=== PATIENT | female | born 1975 | race Caucasian/White ===

== ENCOUNTER → 2018-06-07 | Outpatient (CLI) | payer OTHER ==
--- NOTE | 2018-06-07 16:01 | RAD ---
Pelvic ultrasound, transabdominal 06/07/2018 INDICATION: Pelvic pain COMPARISON STUDY: None Discussion: Ultrasound of the pelvis is performed transabdominally. Static images are submitted to PACS. Uterus measures 11.4 x 3.5 x 5.7 cm. No focal uterine lesions are identified. Endometrial thickness is approximately 10 cm. Correlate with phase of the menstrual cycle. The right ovary measures 2.1 x 1.5 x 2.4 cm and is unremarkable in appearance. Left ovary measures 3.0 x 1.6 x 2.7 cm containing a relatively simple 1.8 cm and dominant follicle versus cyst. No significant free fluid is seen in the pelvis. Transvaginal imaging was not performed. IMPRESSION: Unremarkable sonographic appearance of the pelvis. Electronically signed by: Gerard Dimas MD (06/07/2018 3:58 PM) [id number]
== END | disposition home or self-care (01) ==
LOC: US 13:20
PROVIDERS: ATTEND Family Medicine
DX: R10.2 Pelvic and perineal pain (principal)
CPT/HCPCS: 76856

== ENCOUNTER 2018-09-15 06:01 | Observation (INO) | payer OTHER ==
[~2018-09-15] VITALS: Ht 160 cm; Wt 59.0 kg
[~2018-09-15 06:01] MED LIST: ALPR0.5T6 PO; AMOX500C PO; MULT1TAB52 PO
[2018-09-15] MEDS: IV RINGERS,LACTATED 1000ML 1,000 ML IV SCH ×3 (06:48→10:53)
[2018-09-15] MEDS ORDERED: ONDANSETRON PF 4 MG/2 ML VIAL. ONE (06:52)
[2018-09-15] MEDS ORDERED: DEXAMETHASONE SOD PHOS 20 MG/5 ML VIAL. ONE (06:52)
[2018-09-15] MEDS ORDERED: ROCURONIUM 50 MG/5 ML VIAL. ONE (06:52)
[2018-09-15] MEDS ORDERED: PROPOFOL 20 ML IV ONE (06:52)
[2018-09-15] MEDS ORDERED: LIDOCAINE 2% PF Vial for OR 5 ML VIAL. ONE (06:52)
[2018-09-15] MEDS ORDERED: LIDOCAINE 1% PF 2 ML VIAL. ID PRN (07:00)
[2018-09-15] MEDS ORDERED: fentaNYL PF VIAL 100 MCG/2 ML VIAL IV PRN (07:00)
[2018-09-15] MEDS ORDERED: HYDROmorphone 2 MG/ML VIAL IV PRN ×2 (07:00→09:45)
[2018-09-15] MEDS ORDERED: ONDANSETRON PF 4 MG/2 ML VIAL. IV PRN ×2 (07:00→09:45)
[2018-09-15] MEDS ORDERED: ESTROGENS, CONJ VAGINAL CREAM 30GM TUBE. ONE (07:16)
[2018-09-15] MEDS ORDERED: ISOSULFAN BLUE 50 MG/5 ML VIAL. SQ ONE (07:16)
[2018-09-15] MEDS ORDERED: METHYLENE BLUE 1% 10 ML VIAL. ONE (07:16)
[2018-09-15] MEDS ORDERED: BUPIVAC MPF-EPI 0.5%-1:200000 30 ML VIAL. ONE (07:16)
[2018-09-15] MEDS ORDERED: fentaNYL PF VIAL 100 MCG/2 ML VIAL ONE ×3 (07:24→09:59)
[2018-09-15] MEDS ORDERED: MIDAZOLAM HCL/PF 2 MG/2 ML VIAL. ONE (07:25)
[2018-09-15] MEDS ORDERED: metroNIDAZOLE 0.75% VAGINAL 1 APP TUBE VG ONE (07:30)
[2018-09-15 07:58] LABS: U PREG PATIENT NEGATIVE (NEG)
[2018-09-15 08:01] LABS: BASO % 1 % (0-3); EOS # 0.1 x10^3/uL (0.0-0.7); EOS % 2 % (0-3); HEMATOCRIT 40.7 % (36.0-47.0); HEMOGLOBIN 13.8 g/dL (12.0-15.5); LYMPH # 2.4 x10^3/uL (1.0-4.8); LYMPH % 30 % (24-48); MEAN CORPUSCULAR HEMOGLOBIN 32 pg (25-35); MEAN CORPUSCULAR HGB CONC 34 g/dL (31-37); MEAN CORPUSCULAR VOLUME 94 fL (79-100); MONO # 0.7 x10^3/uL (0.0-1.1); MONO % 8 % (0-9); NEUT # 4.8 x10^3uL (1.8-7.7); NEUT % 60 % (31-73); PLATELET COUNT 287 x10^3/uL (140-400); RED BLOOD COUNT 4.35 x10^6/uL (3.50-5.40); RED CELL DISTRIBUTION WIDTH 13.5 % (11.5-14.5); WHITE BLOOD COUNT 8.1 x10^3/uL (4.0-11.0)
[2018-09-15] MEDS ORDERED: SEVOFLURANE > 120 MINUTES. IH ONE (08:16)
[2018-09-15] MEDS ORDERED: GLYCOPYRROLATE 1 MG/5 ML VIAL. ONE (08:38)
[2018-09-15] MEDS ORDERED: diphenhydrAMINE 50 MG/ML VIAL ONE (08:46)
[2018-09-15] MEDS ORDERED: NEOSTIGMINE 10 MG/10 ML VIAL. ONE (08:50)
[2018-09-15] MEDS ORDERED: SEVOFLURANE 61 TO 120 MINUTES. IH ONE (09:38)
[2018-09-15] MEDS ORDERED: diphenhydrAMINE 50 MG/ML VIAL IV PRN (09:45)
[2018-09-15] MEDS ORDERED: DEXTROSE 50% 25 GM / 50ML DISP.SYRIN. IV PRN (09:45)
[2018-09-15] MEDS ORDERED: MAG HYDROX/ALUMINUM HYD/SIMETH 30 ML ORAL.SUSP PO PRN (09:45)
[2018-09-15] MEDS ORDERED: ZOLPIDEM 5 MG TABLET. PO PRN (09:45)
[2018-09-15] MEDS ORDERED: oxyCODONE/APAP 5/325 1 TAB TABLET PO PRN (09:45)
[2018-09-15] MEDS ORDERED: 0.9 % SODIUM CHLORIDE 10 ML DISP.SYRIN. IV PRN (09:45)
[2018-09-15] MEDS ORDERED: HYDROmorphone 12mg/30ml PCA 30 ML IV PRN (09:45)
[2018-09-15] MEDS ORDERED: NALOXONE 0.4 MG/ML VIAL. IV PRN (09:45)
[2018-09-15] MEDS ORDERED: SIMETHICONE 80 MG TAB.CHEW PO PRN (09:45)
[2018-09-15] MEDS ORDERED: diphenhydrAMINE HCL 25 MG CAPSULE PO PRN (09:45)
[2018-09-15] MEDS ORDERED: CALCIUM CARBONATE 500 MG TAB.CHEW PO PRN (09:45)
--- NOTE | 2018-09-15 09:46 | PDOC ---
BRIEF OPERATIVE NOTE Pre-Op Diagnosis AUB Endometriosis CPP leiomyomata Post-Op Diagnosis Same Procedure Performed LAVK BSO Surgeon Chaparrita Anesthesia Type: General Blood Loss 100cc Urine Output 500cc Specimens Obtained UYO Complications None WEST BEAULIEU MD Sep 15, 2018 09:46
[2018-09-15] MEDS ORDERED: MORPHINE SULFATE 4 MG/ML VIAL. ONE (09:59)
[2018-09-15] MEDS ORDERED: PROCHLORPERAZINE 10 MG/2 ML VIAL. ONE (09:59)
[2018-09-15] MEDS: PROCHLORPERAZINE 10 MG/2 ML VIAL. IV PRN ×2 (10:10→10:26)
[2018-09-15] MEDS: fentaNYL PF VIAL 100 MCG/2 ML VIAL IV PRN ×2 (10:11→10:17)
[2018-09-15] MEDS ORDERED: KETOROLAC 30 MG/ML VIAL. ONE (10:12)
[2018-09-15] MEDS: MORPHINE SULFATE 4 MG/ML VIAL. IV PRN ×4 (10:13→11:19)
[2018-09-15] MEDS ORDERED: KETOROLAC 30 MG/ML VIAL. IV ONE (10:15)
--- NOTE | 2018-09-15 10:59 | OP ---
DATE OF SURGERY: 09/15/2018 PREOPERATIVE DIAGNOSES: Abnormal uterine bleeding, chronic pelvic pain, symptomatically leiomyomata endometriosis. POSTOPERATIVE DIAGNOSES: Abnormal uterine bleeding, chronic pelvic pain, symptomatically leiomyomata endometriosis. PROCEDURE: Laparoscopic vaginal hysterectomy with bilateral salpingo-oophorectomy. SURGEON: West Cheatham M.D. SURVEY METHODOLOGIST: None. ANESTHESIA: General. ESTIMATED BLOOD LOSS: 100 mL. FLUIDS: Crystalloid. URINE OUTPUT: 500 mL. SPECIMENS: Uterus, tubes and ovaries. COMPLICATIONS: None. CONDITION: Stable. DESCRIPTION OF PROCEDURE: Risks, benefits, indications, alternatives and expectations were discussed in detail with the patient. The patient was brought to OR theater, placed in the dorsal lithotomy position in [facility]. After adequate general anesthesia, the patient was prepped and draped in usual sterile manner, and Johns was placed by myself. Clear urine was noted. Uterine manipulator was placed transvaginally without any difficulties. Attention was then turned to the anterior abdominal wall. A small vertical infraumbilical incision was made sharply with a scalpel. Through this Visiport, 5 mm disposable trocar was placed without any difficulty. Two lateral trocars were also placed under direct visualization after infiltrating the areas with 0.5% Marcaine with epinephrine. The patient was placed in Trendelenburg. First, the left IPL was taken down with EnSeal cautery device. This was taken down through the broad ligaments, round ligaments, cardinal ligament to the uterosacral ligament and a bladder flap was created with the same device. Same procedure was carried out on the opposite side. Good hemostasis was assured at all time. Bladder flap was created and developed as much as possible. Attention was then turned to the vaginal part of the procedure. All laparoscopic instruments were removed. Ports were left inside. The patient was placed in Trendelenburg. Uterine manipulator was removed. Cervix was grasped with single tooth tenaculum. Cervix circumcised with the scalpel. Posterior cul-de-sac was entered sharply with Albright scissors. The fluid that was left in the pelvis was noted to be returning. Large weighted speculum was placed in the space carefully. The pubovesical cervical fascia was from the underlying uterus secondary to the patient's previous . This was a tedious process. Entrance was gained into the anterior cul-de-sac and a curved [place] was used to displace the bladder. The remaining pedicles were clamped, cut and tied bilaterally, and the uterus was relieved with these attachments and handed off the operative field. Both tubes and ovaries were intact to the uterus. All pedicles were inspected. Posterior cul-de-sac was irrigated copiously with warm normal saline. A long weighted speculum was removed, replaced with a short weighted speculum. The vaginal cuff was reapproximated with 2-0 Vicryl in a horizontal mattress stitch fashion. Vaginal vault was irrigated copiously with warm normal saline and MetroGel vaginal packing was placed in the usual manner. Attention was then turned back to the laparoscopic part of the procedure. After changing gloves, the patient was placed in Trendelenburg. All pedicles were inspected and noted to be hemostatic. Ureters bilaterally were inspected and noted to be peristalsing and free of the operative field. Approximately 100 mL of saline was left in the pelvis for additional adhesion formation prevention. Procedure was terminated. All laparoscopic instrumentations were removed. Pneumoperitoneum was allowed to dissipate. Trocar sleeves were removed. The incisions were reapproximated, infiltrated with 0.5% Marcaine with epinephrine. Sponge, needle and instrument counts were correct x 2 per nursing staff. WEST CHEATHAM MD DR: TASH/jose g JOB#: [id number] / [id number]
[2018-09-15 11:30] VITALS: BP 102/71
[2018-09-15 12:10] VITALS: BP 105/71
[2018-09-15 13:07] VITALS: BP 108/69
[2018-09-15] MEDS: ceFAZolin SODIUM 1 GM in IV DEXTROSE 5% 50 ML IV SCH ×2 (15:33→20:54)
[2018-09-15] MEDS: oxyCODONE/APAP 5/325 1 TAB TABLET PO PRN ×2 (19:34→20:05)
[2018-09-15] MEDS ORDERED: DOCUSATE SODIUM 100 MG CAPSULE. PO SCH (21:00)
[2018-09-15] MEDS ORDERED: SENNOSIDES/DOCUSATE 8.6/50MG TABLET. PO SCH (21:00)
[2018-09-15 22:58] VITALS: BP 113/72
[2018-09-16] MEDS: ceFAZolin SODIUM 1 GM in IV DEXTROSE 5% 50 ML IV SCH (03:10)
[2018-09-16] MEDS: oxyCODONE/APAP 5/325 1 TAB TABLET PO PRN ×2 (03:12→09:03)
[2018-09-16 06:28] VITALS: BP 91/62
[2018-09-16 07:28] LABS: CALCIUM 9.3 mg/dL (8.5-10.1); CREATININE 0.8 mg/dL (0.6-1.0); GFR 77.9
--- NOTE | 2018-09-16 09:57 | PDOC ---
SURGICAL PROGRESS NOTE Subjective PT. feeling well. Vital Signs Vital Signs Date Time Temp Pulse Resp B/P (MAP) Pulse Ox O2 Delivery O2 Flow Rate FiO2 09/16/18 06:28 97.9 67 14 91/62 (72) 95 97.9 09/15/18 22:58 Room Air 09/15/18 10:35 10 I&O Intake and Output 09/16/18 06:59 Intake Total 2400 ml Output Total 1000 ml Balance 1400 ml Intake Oral 400 ml IV Total 2000 ml Output Urine Total 900 ml Estimated Blood Loss 100 ml # Voids 1 PATIENT HAS A HAUSER: No General: Alert, Oriented X3, Cooperative HEENT: Atraumatic Lungs: Clear to auscultation Heart: Regular rate Abdomen: Normal bowel sounds, Soft, No tenderness, No masses Psych/Mental Status: Mental status NL Labs Laboratory Tests Test 09/15/18 06:10 09/15/18 06:45 09/16/18 06:10 Urine Test Negative (NEG) White Blood Count 8.1 x10^3/uL (4.0-11.0) Red Blood Count 4.35 x10^6/uL (3.50-5.40) Hemoglobin 13.8 g/dL (12.0-15.5) Hematocrit 40.7 % (36.0-47.0) 35.2 % (36.0-47.0) Mean Corpuscular Volume 94 fL (79-100) Mean Corpuscular Hemoglobin 32 pg (25-35) Mean Corpuscular Hemoglobin Concent 34 g/dL (31-37) Red Cell Distribution Width 13.5 % (11.5-14.5) Platelet Count 287 x10^3/uL (140-400) Neutrophils (%) (Auto) 60 % (31-73) Lymphocytes (%) (Auto) 30 % (24-48) Monocytes (%) (Auto) 8 % (0-9) Eosinophils (%) (Auto) 2 % (0-3) Basophils (%) (Auto) 1 % (0-3) Neutrophils # (Auto) 4.8 x10^3uL (1.8-7.7) Lymphocytes # (Auto) 2.4 x10^3/uL (1.0-4.8) Monocytes # (Auto) 0.7 x10^3/uL (0.0-1.1) Eosinophils # (Auto) 0.1 x10^3/uL (0.0-0.7) Basophils # (Auto) 0.0 x10^3/uL (0.0-0.2) Sodium Level 141 mmol/L (136-145) Potassium Level 4.0 mmol/L (3.5-5.1) Chloride Level 105 mmol/L (98-107) Carbon Dioxide Level 28 mmol/L (21-32) Anion Gap 8 (6-14) Blood Urea Nitrogen 7 mg/dL (7-20) Creatinine 0.8 mg/dL (0.6-1.0) Estimated GFR (Cockcroft-Gault) 77.9 Glucose Level 96 mg/dL (70-99) Calcium Level 9.3 mg/dL (8.5-10.1) Laboratory Tests Test 09/16/18 06:10 Hematocrit 35.2 % (36.0-47.0) Sodium Level 141 mmol/L (136-145) Potassium Level 4.0 mmol/L (3.5-5.1) Chloride Level 105 mmol/L (98-107) Carbon Dioxide Level 28 mmol/L (21-32) Anion Gap 8 (6-14) Blood Urea Nitrogen 7 mg/dL (7-20) Creatinine 0.8 mg/dL (0.6-1.0) Estimated GFR (Cockcroft-Gault) 77.9 Glucose Level 96 mg/dL (70-99) Calcium Level 9.3 mg/dL (8.5-10.1) Assessment/Plan POD#1 s/p LAVMissy & BSO P: D/c home. RADHAMES PANIAGUA Jr, MD Sep 16, 2018 09:57
--- NOTE | 2018-09-16 09:59 | DISCH ---
DISCHARGE INSTRUCTIONS Condition on Discharge Condition on Discharge: Stable Activity After Discharge Activity Instructions for Disc: Activity as tolerated Lifting Instructions after Dis: No heavy lifting Driving Instructions after Dis: No driving for 2 weeks Diet after Discharge Diet after Discharge: Regular Contacting the DRWang after DC Call your doctor for: Concerns you may have Follow-Up Follow up with: Dr. Cheatham in 2 weeks. RADHAMES PANIAGUA Jr, MD Sep 16, 2018 09:59
[2018-09-16] MEDS ORDERED: NAPR-683 PO (10:03)
[2018-09-16] MEDS ORDERED: DOCU-109 PO (10:03)
[2018-09-16] MEDS ORDERED: OXYC1TAB15 PO (10:03)
[2018-09-16 11:00] VITALS: BP 91/62
--- NOTE | 2018-09-17 18:06 | PATHOLOGY ---
[facility] Accession Number: [id number] . 01 Material submitted: . UTERUS, CERVIX, BILATERAL TUBES AND OVARIES . 01 Clinical history: . Abnormal uterine bleeding, endometriosis, polyp . 02 Diagnosis: Uterus and attached bilateral fallopian tubes and ovaries, laparoscopic assisted vaginal hysterectomy with bilateral salpingo-oophorectomy: - Adenomyosis, uterine corpus. - Chronic cervicitis with focal squamous metaplasia. - Proliferative endometrium. - Left paratubal cyst. - Small right paratubal cyst. - Cystic follicles and hemorrhagic regressing luteinized cyst of left ovary. - Cystic follicles and focal capsular adhesions of right ovary. (JPM:helga; 09/17/2018) QMS/09/17/2018 . 02 Comment: There is no atypia or evidence of malignancy. . 02 Electronically signed: . Daren No MD, Pathologist NPI- [id number] . 01 Gross description: . The specimen is received in formalin, labeled "Mell Davis, uterus, cervix, bilateral tubes and ovaries". Received is a 78 g, 8.9 x 5.2 x 4.2 cm uterus with attached cervix and attached adnexa, weighing 9and 8 g, left and right, respectively. The uterine serosa is light hancock and disrupted in appearance with overlying adhesions present at the fundal aspect. The 1.1 cm cervical os is surrounded by pale hancock to mathur-hancock, scarred disrupted ectocervical mucosa. The uterus is oriented using the peritoneal reflection and the anterior paracervical margin is inked black. The uterus is opened laterally to reveal a pale hancock endocervical canal measuring 2.6 cm in length. The endometrial cavity is triangular measuring 4.1 cm in length by 2.7 cm in width. The endometrium is pink-hancock, glistening in appearance and measures 0.1 cm in thickness. Serial sectioning reveals a hancock-pink, trabeculated myometrium measuring up to 2.0 cm in thickness with no grossly distinct nodules or lesions. . The left adnexa consists of a fimbriated fallopian tube measuring 2.2 cm in length by 0.5 cm in diameter attached to a 3.0 x 2.2 x 2.0 cm ovary. The fallopian tube displays an attached paratubal cyst measuring 1.2 cm filled with clear serous fluid. Sectioning reveals a pinpoint to patent lumen. The ovarian surface is pale hancock to mathur-hancock and smooth in appearance. Sectioning reveals a unilocular cystic structure measuring 1.8 cm filled with yellow serous fluid. There are several corpora lutea present ranging in size from 0.4 to 1.1 cm, the largest of which appears hemorrhagic. The remaining cut surfaces display pale hancock, normal ovarian stroma. . The right adnexa consists of a previously ligated fimbriated fallopian tube measuring 3.1 cm in length by 0.6 cm in diameter attached to a 2.6 x 1.7 x 1.5 cm ovary. Sectioning through the fallopian tube reveals a patent lumen. The ovarian surface is yellow-hancock to mathur-hancock in appearance with a slight amount of overlying adhesions. Sectioning reveals two unilocular cystic structures measuring 0.5 and 0.8 cm filled with blood-tinged fluid. The remaining cut surfaces display pale hancock, normal ovarian stroma. The specimen is submitted representatively as follows: . A1 12:00 cervix A2 6:00 cervix A3 serosal adhesions A4 anterior endomyometrium A5 posterior endomyometrium A6-A7 left adnexa A8-A9 right adnexa. (CAA; 09/16/2018) QAC/QAC . 02 Pathologist provided ICD-10: N80.0, N72, N83.8 . 02 CPT . 227032 Specimen Comment: A courtesy copy of this report has been sent to Specimen Comment: [phone], . Specimen Comment: Report sent to / DR NUNEZ Specimen Comment: A duplicate report has been generated due to demographic updates. Performed at: [address], [place], [place] [id number] MD Christopher Mooney MD Phone: [phone] Performed at: 02 [facility] [address] [place] [id number] MD Daren No MD Phone: [phone]
== END 2018-09-16 12:49 | disposition home or self-care (01) ==
LOC: SURG 06:01 → MERGE 07:30 → 3 NORTH 10:19
PROVIDERS: ADMIT Specialist; ATTEND Specialist
DX: N93.9 Abnormal uterine and vaginal bleeding, unspecified (principal); N80.9 Endometriosis, unspecified; G89.29 Other chronic pain; N83.8 Other noninflammatory disorders of ovary, fallopian tube and broad ligament; Z98.891 History of uterine scar from previous surgery
CPT/HCPCS: 36415; 58552; 80048; 81025; 85014; 85025; 86850; 86900; 86901; 96365; 96366; 96375; G0378; G0379; J0690; J0696; J0780; J1100; J1170; J1885; J2001; J2250; J2270; J2704; J2710; J3010; J3490; J7030; J7120; 88307; J1200; J2405; Q9968

== ENCOUNTER 2019-08-18 13:38 | Emergency (ER) | payer OTHER ==
[~2019-08-18] VITALS: Ht 170.2 cm; Wt 59.0 kg
[~2019-08-18 13:38] MED LIST changes: +DOCU-109 PO; +NAPR-683 PO; +OXYC1TAB15 PO
--- NOTE | 2019-08-18 14:05 | RAD ---
EXAM: CT Head without IV contrast INDICATION: Code stroke. Weakness. TECHNIQUE: Multi-detector row CT images were obtained of the head without the use of IV contrast. All CT scans performed at this facility utilize dose optimization techniques as appropriate to the exam, including the following: Automated exposure control and adjustment of the mA and/or KV according to patient size (this includes techniques or standardized protocols for targeted exams where dose is indication/reason for exam). DLP 1155.5 mGycm COMPARISON: None FINDINGS: BRAIN PARENCHYMA: No evidence of acute intraparenchymal hemorrhage or infarct. No abnormal parenchymal density or mass. VENTRICLES & EXTRA-AXIAL SPACES: Ventricles are within normal limits. Basilar cisterns are patent. No pathologic extra-axial fluid collection or mass. ORBITS: Orbital contents are unremarkable. SINUSES: Visualized paranasal sinuses and mastoid air cells are clear. OSSEOUS & SOFT TISSUES: Calvarium and skull base are intact. IMPRESSION: No acute intracranial pathology FOR INTERNAL CODING PURPOSES Critical result: Findings discussed with ZOIE TAO at 08/18/2019 2:01 PM. RESULT CODE: (C) Electronically signed by: Pily Pereira MD (08/18/2019 2:02 PM) [facility]
[2019-08-18 14:32] LABS: PROTHROMBIN TIME PATIENT 12.3 SEC (11.7-14.0)
--- NOTE | 2019-08-18 14:36 | EKG ---
[facility] [address] [place] [address] Test Date: 2019-08-18 Test Time: 14:15:56 Pat Name: CORAL KHOURY Department: Room: Gender: F Bundler: : 1975 Requested By: ZOIE TAO Order Number: [id number] Reading MD: Measurements Intervals [place] Rate: 58 P: 31 ID: [id number] QRS: 19 QRSD: 72 T: 36 QT: 386 QTc: 386 Interpretive Statements SINUS RHYTHM NON SPECIFIC ST-T ABNORMALITY (ELEVATION) OTHERWISE NORMAL ECG No previous ECG available for comparison
--- NOTE | 2019-08-18 14:37 | PHYS DOC ---
Past Medical History Past Medical History: Other Additional Past Medical Histor: PLEURACY Past Surgical History: Other Additional Past Surgical Histo: 4 CERVICAL BIOPSIES Alcohol Use: Rarely Drug Use: None Adult General Chief Complaint Chief Complaint: NEURO SYMPTOMS/DEFICITS [facility] HPI Patient is a 43 year old female with history of anxiety and pleurisy who presents with complaint of slurred speech and left upper and lower extremity weakness and numbness. Patient states she woke up at 7 AM this morning without problem and about 0720(about 6 hours prior to arrival to ER) had abnormal speech and her describe it as "drunk talking". Patient complaining of left uppe r and lower extremity weakness and numbness. Patient was seen by her primary care physician who sent her to emergency room with constellation of acute CVA. Code stroke was activated upon arrival of patient in ER. Review of Systems Review of Systems Constitutional: Denies fever or chills [] Eyes: Denies change in visual acuity, redness, or eye pain [] HENT: Denies nasal congestion or sore throat [] Respiratory: Denies cough or shortness of breath [] Cardiovascular: No additional information not addressed in HPI [] GI: Denies abdominal pain, nausea, vomiting, bloody stools or diarrhea [] : Denies dysuria or hematuria [] Musculoskeletal: Denies back pain or joint pain [] Integument: Denies rash or skin lesions [] Neurologic: Denies headache, reports focal weakness or sensory changes [] Endocrine: Denies polyuria or polydipsia [] All other systems were reviewed and found to be within normal limits, except as documented in this note. Current Medications Current Medications Current Medications Medications (Trade) Dose Ordered Sig/Abhi Start Time Stop Time Status Last Admin Dose Admin Iohexol (Omnipaque 350 Mg/ml) 75 ml 1X ONCE 08/18/19 15:00 08/18/19 15:01 DC 08/18/19 15:04 75 ML Allergies Allergies Allergies Coded Allergies Type Severity Reaction Last Updated Verified No Known Drug Allergies 09/15/18 No Physical Exam Physical Exam Constitutional: Well developed, well nourished, mild distress, non-toxic appearance. [] HENT: Normocephalic, atraumatic. Eyes: PERRLA, EOMI, conjunctiva normal, no discharge. [] Neck: Normal range of motion, no tenderness, supple, no stridor. [] Cardiovascular:Heart rate regular rhythm, no murmur [] Lungs & Thorax: Bilateral breath sounds clear to auscultation [] Abdomen: Bowel sounds normal, soft, no tenderness, no masses, no pulsatile masses. [] Skin: Warm, dry, no erythema, no rash. [] Back: No tenderness, no CVA tenderness. [] Extremities: No tenderness, no cyanosis, no clubbing, ROM intact, no edema. [] Neurologic: Alert and oriented X 3, NIHS-2, no slurred speech. Psychologic: Affect normal, judgement normal, mood normal. [] Current Patient Data Vital Signs Vital Signs Date Time Temp Pulse Resp B/P (MAP) Pulse Ox O2 Delivery O2 Flow Rate FiO2 08/18/19 14:20 98.5 71 20 106/51 (69) 99 Room Air 98.5 Lab Values Laboratory Tests Test 08/18/19 13:50 08/18/19 14:05 08/18/19 14:40 Glucose (Fingerstick) 97 mg/dL (70-99) Prothrombin Time 12.3 SEC (11.7-14.0) Prothrombin Time INR 0.9 (0.8-1.1) Activated Partial Thromboplast Time 28 SEC (24-38) Sodium Level 140 mmol/L (136-145) Potassium Level 4.0 mmol/L (3.5-5.1) Chloride Level 104 mmol/L (98-107) Carbon Dioxide Level 32 mmol/L (21-32) Anion Gap 4 (6-14) L Blood Urea Nitrogen 12 mg/dL (7-20) Creatinine 0.8 mg/dL (0.6-1.0) Estimated GFR (Cockcroft-Gault) 77.6 BUN/Creatinine Ratio 15 (6-20) Glucose Level 95 mg/dL (70-99) Calcium Level 9.5 mg/dL (8.5-10.1) Total Bilirubin 0.1 mg/dL (0.2-1.0) L Aspartate Amino Transferase (AST) 21 U/L (15-37) Alanine Aminotransferase (ALT) 31 U/L (14-59) Alkaline Phosphatase 96 U/L (46-116) Troponin I Quantitative < 0.017 ng/mL (0.000-0.055) Total Protein 6.9 g/dL (6.4-8.2) Albumin 3.6 g/dL (3.4-5.0) Albumin/Globulin Ratio 1.1 (1.0-1.7) White Blood Count 8.0 x10^3/uL (4.0-11.0) Red Blood Count 4.00 x10^6/uL (3.50-5.40) Hemoglobin 12.5 g/dL (12.0-15.5) Hematocrit 36.9 % (36.0-47.0) Mean Corpuscular Volume 92 fL (79-100) Mean Corpuscular Hemoglobin 31 pg (25-35) Mean Corpuscular Hemoglobin Concent 34 g/dL (31-37) Red Cell Distribution Width 14.0 % (11.5-14.5) Platelet Count 273 x10^3/uL (140-400) Neutrophils (%) (Auto) 52 % (31-73) Lymphocytes (%) (Auto) 38 % (24-48) Monocytes (%) (Auto) 7 % (0-9) Eosinophils (%) (Auto) 2 % (0-3) Basophils (%) (Auto) 1 % (0-3) Neutrophils # (Auto) 4.2 x10^3/uL (1.8-7.7) Lymphocytes # (Auto) 3.1 x10^3/uL (1.0-4.8) Monocytes # (Auto) 0.6 x10^3/uL (0.0-1.1) Eosinophils # (Auto) 0.2 x10^3/uL (0.0-0.7) Basophils # (Auto) 0.1 x10^3/uL (0.0-0.2) Laboratory Tests 08/18/19 14:40 Laboratory Tests 08/18/19 14:05 EKG EKG EKG interpreted by me. EKG at 1450 showed sinus bradycardia at rate of 59, nonspecific ST and T-wave abnormalities, normal NV and QT intervals, no acute ST and T-wave elevation. Radiology/Procedures Radiology/Procedures [facility] [address] [place] [address] IMAGING REPORT Signed PATIENT: CORAL KHOURY ACCOUNT: [id number] : 1975 LOCATION: ER AGE: 43 SEX: F EXAM STATUS: REG ER ORD. PHYSICIAN: ZOIE TAO MD REASON: weakness PROCEDURE: CT CODE STROKE HEAD WO EXAM: CT Head without IV contrast INDICATION: Code stroke. Weakness. TECHNIQUE: Multi-detector row CT images were obtained of the head without the use of IV contrast. All CT scans performed at this facility utilize dose optimization techniques as appropriate to the exam, including the following: Automated exposure control and adjustment of the mA and/or KV according to patient size (this includes techniques or standardized protocols for targeted exams where dose is indication/reason for exam). DLP 1155.5 mGycm COMPARISON: None FINDINGS: BRAIN PARENCHYMA: No evidence of acute intraparenchymal hemorrhage or infarct. No abnormal parenchymal density or mass. VENTRICLES & EXTRA-AXIAL SPACES: Ventricles are within normal limits. Basilar cisterns are patent. No pathologic extra-axial fluid collection or mass. ORBITS: Orbital contents are unremarkable. SINUSES: Visualized paranasal sinuses and mastoid air cells are clear. OSSEOUS & SOFT TISSUES: Calvarium and skull base are intact. IMPRESSION: No acute intracranial pathology FOR INTERNAL CODING PURPOSES Critical result: Findings discussed with ZOIE TAO at 08/18/2019 2:01 PM. RESULT CODE: (C) Electronically signed by: Humaira Pereira MD (08/18/2019 2:02 PM) [facility] [place] DICTATED and SIGNED BY: HUMAIRA PEREIRA MD DATE: 08/18/[address] [facility] [address] [place] [address] IMAGING REPORT Signed PATIENT: CORAL KHOURY ACCOUNT: [id number] : 1975 LOCATION: ER AGE: 43 SEX: F EXAM STATUS: REG ER ORD. PHYSICIAN: ZOIE TAO MD REASON: slurred speech and left upper and lower extremity numbness PROCEDURE: CT ANGIOGRAPHY HEAD AND NECK EXAM: CT Angiogram of the Head and Neck INDICATION: Slurred speech and left upper and lower extremity numbness. TECHNIQUE: CT images were obtained through the head per standard CTA protocol. Multiplanar and 3D reformatted images were generated from the CT dataset on an independent workstation. All CT scans performed at this facility utilize dose optimization techniques as appropriate to the exam, including the following: Automated exposure control and adjustment of the mA and/or KV according to patient size (this includes techniques or standardized protocols for targeted exams where dose is indication/reason for exam). IV CONTRAST: Administered DLP 194.20 mGycm COMPARISON: Noncontrast head CT of earlier the same day FINDINGS: CTA HEAD: No high-grade large vessel stenosis, proximal or branch vessel occlusion, aneurysm, or vascular malformation. ANTERIOR CIRCULATION: Anterior and middle cerebral arteries are widely patent. ANTERIOR COMMUNICATING ARTERY: Patent. POSTERIOR COMMUNICATING ARTERIES: Present bilaterally and patent. POSTERIOR CIRCULATION: Vertebral and basilar arteries are widely patent. Bilateral posterior inferior cerebellar arteries (PICAs), anterior inferior cerebellar arteries (AICAs), and superior cerebellar arteries (SCAs) are visualized and patent. OTHER: No abnormal brain parenchymal enhancement. The paranasal sinuses, mastoid air cells, and tympanic cavities are clear. NECK CTA: AORTA: 3 vessel configuration of arch. No dissection or acute aortic injury. No hemodynamically significant great vessel origin stenosis. RIGHT CAROTID: Common and internal carotid arteries are widely patent, without evidence of flow limiting stenosis or dissection. LEFT CAROTID: Common and internal carotid arteries are widely patent, without evidence of flow limiting stenosis or dissection. VERTEBRAL ARTERIES: Codominant. No evidence of dissection or flow limiting stenosis. SUBCLAVIAN ARTERIES:Subclavian arteries are patent without stenosis. SOFT TISSUES: Soft tissues are unremarkable. Lung apices are clear. C-spine degenerative changes incidentally noted. Where applicable, evaluation of ICA stenosis was performed using NASCET criteria, where the site of greatest stenosis is compared to the diameter of the ICA distal to the carotid bulb. IMPRESSION: Normal CTA of the head and neck. FOR INTERNAL CODING PURPOSES Critical result: Findings discussed with ZOIE TAO at 08/18/2019 3:26 PM. RESULT CODE: (C) Electronically signed by: Humaira Pereira MD (08/18/2019 3:27 PM) [facility] [place] DICTATED and SIGNED BY: HUMAIRA PEREIRA MD DATE: 08/18/19 1527 Course & Med Decision Making Course & Med Decision Making Pertinent Labs and Imaging studies reviewed. (See chart for details) Evaluation of patient in ER showed 43-year-old female patient with history of bipolar disorder was started on gabapentin yesterday and complaining of left upper and lower extremity paresthesias and weakness and started to speak. Patient had induration skin of 2 at arrival to ER that changed to 0 after observation in ER. Patient had negative CT head and CT angio head and neck. Dr. Francis primary care physician was informed at 1544 and agreed with plan of discharging patient home with follow-up with her psychiatric regarding medica tion side effect. I've spoken with the patient and/or caregivers. I've explained the patient's condition, diagnosis and treatment plan based on information available to me at this time. I've answered the patient's and/or caregivers questions and addressed any concerns. The patient and/or caregivers have a good understanding the patient's diagnosis, condition and treatment plan as can be expected at this point. Vital signs have been stabilized. The patient's condition is stable for discharge from the emergency department. The patient will pursue further outpatient evaluation with her primary care provider or other designated consulting physician as outlined in the discharge instructions. Patient and/or caregivers are agreeable to this plan of care and follow-up instructions have been explained in detail. The patient and/or caregivers have received these instructions in written format and expressed understanding of these discharge instructions. The patient and her caregivers are aware that if any significant change in condition or worsening of symptoms should prompt him to immediately return to this of the closest emergency department. If an emergent department is not readily available I would encourage him to call 911. Minnie Disclaimer Dragon Disclaimer This electronic medical record was generated, in whole or in part, using a voice recognition dictation system. Departure Departure Impression: Primary Impression: Medication side effect Disposition: HOME, SELF-CARE (at 1539) Condition: IMPROVED Referrals: EBONIE NUNEZ MD (PCP) Patient Instructions: Paresthesia, Weakness Additional Instructions: Drink plenty of liquids Follow-up with your psychiatric physician in 1-2 days guarding medication side effect Return to ER if not getting better Thank you for visiting [facility]. We appreciate you trusting us with your care. If any additional problems come up don't hesitate to return to visit us. Please follow up with your primary care provider so they can plan additional care if needed and know about the problem that you had. If symptoms worsen come back to the Emergency Department. Any concerning symptoms that start such as chest pain, shortness of air, weakness or numbness on one side of the body, running high fevers or any other concerning symptoms return to the ER. NIHSS Stroke Scale NIH Stroke Scale: NIH Stroke Scale Response (Comments) Value Level of Consciousness: 0 Alert/Responsive 0 LOC Questions: 0 Answers both correctly 0 LOC Commands: 0 Performs both tasks 0 Best Gaze: 0 Normal 0 Visual: 0 No visual loss 0 Facial Palsy: 0 Normal, symmetrical 0 Motor - Left Arm 0 No drift 0 Motor - Right Arm 0 No drift 0 Motor - Left Leg 1 Drift but can hold 1 Motor: Right Leg 0 No drift 0 Limb Ataxia: 0 Absent 0 Sensory: 1 Mid to moderate loss 1 Best Language: 0 Normal 0 Dysathria: 0 Normal 0 Extinction and Inattention: 0 Normal 0 Total 2 ZOIE TAO MD Aug 18, 2019 14:37
[2019-08-18 14:43] LABS: BASO # 0.1 x10^3/uL (0.0-0.2); BASO % 1 % (0-3); EOS # 0.2 x10^3/uL (0.0-0.7); EOS % 2 % (0-3); HEMATOCRIT 36.9 % (36.0-47.0); HEMOGLOBIN 12.5 g/dL (12.0-15.5); LYMPH # 3.1 x10^3/uL (1.0-4.8); LYMPH % 38 % (24-48); MEAN CORPUSCULAR HEMOGLOBIN 31 pg (25-35); MEAN CORPUSCULAR HGB CONC 34 g/dL (31-37); MEAN CORPUSCULAR VOLUME 92 fL (79-100); MONO # 0.6 x10^3/uL (0.0-1.1); MONO % 7 % (0-9); NEUT # 4.2 x10^3/uL (1.8-7.7); NEUT % 52 % (31-73); PLATELET COUNT 273 x10^3/uL (140-400)
[2019-08-18 14:43] LABS: CALCIUM 9.5 mg/dL (8.5-10.1); CREATININE 0.8 mg/dL (0.6-1.0); GFR 77.6
--- NOTE | 2019-08-18 14:45 | RAD ---
EXAM: CHEST 1 VIEW History: Weakness COMPARISON: 08/25/2008 TECHNIQUE: Single portable radiograph of the chest FINDINGS: The cardiac silhouette is unremarkable. The lungs are clear bilaterally. The costophrenic sulci are clear and well demarcated. IMPRESSION: No radiographic evidence of an acute cardiopulmonary process. Electronically signed by: Marlo Vasquez MD (08/18/2019 2:42 PM) [id number]
[2019-08-18 14:49] LABS: ALBUMIN 3.6 g/dL (3.4-5.0); ALBUMIN/GLOBULIN RATIO 1.1 (1.0-1.7); TOTAL BILIRUBIN 0.1 mg/dL (0.2-1.0); TOTAL PROTEIN 6.9 g/dL (6.4-8.2)
[2019-08-18] MEDS ORDERED: IOHEXOL 350 MG/ML 100 ML VIAL. IV ONE (15:00)
--- NOTE | 2019-08-18 15:30 | RAD ---
EXAM: CT Angiogram of the Head and Neck INDICATION: Slurred speech and left upper and lower extremity numbness. TECHNIQUE: CT images were obtained through the head per standard CTA protocol. Multiplanar and 3D reformatted images were generated from the CT dataset on an independent workstation. All CT scans performed at this facility utilize dose optimization techniques as appropriate to the exam, including the following: Automated exposure control and adjustment of the mA and/or KV according to patient size (this includes techniques or standardized protocols for targeted exams where dose is indication/reason for exam). IV CONTRAST: Administered DLP 194.20 mGycm COMPARISON: Noncontrast head CT of earlier the same day FINDINGS: CTA HEAD: No high-grade large vessel stenosis, proximal or branch vessel occlusion, aneurysm, or vascular malformation. ANTERIOR CIRCULATION: Anterior and middle cerebral arteries are widely patent. ANTERIOR COMMUNICATING ARTERY: Patent. POSTERIOR COMMUNICATING ARTERIES: Present bilaterally and patent. POSTERIOR CIRCULATION: Vertebral and basilar arteries are widely patent. Bilateral posterior inferior cerebellar arteries (PICAs), anterior inferior cerebellar arteries (AICAs), and superior cerebellar arteries (SCAs) are visualized and patent. OTHER: No abnormal brain parenchymal enhancement. The paranasal sinuses, mastoid air cells, and tympanic cavities are clear. NECK CTA: AORTA: 3 vessel configuration of arch. No dissection or acute aortic injury. No hemodynamically significant great vessel origin stenosis. RIGHT CAROTID: Common and internal carotid arteries are widely patent, without evidence of flow limiting stenosis or dissection. LEFT CAROTID: Common and internal carotid arteries are widely patent, without evidence of flow limiting stenosis or dissection. VERTEBRAL ARTERIES: Codominant. No evidence of dissection or flow limiting stenosis. SUBCLAVIAN ARTERIES:Subclavian arteries are patent without stenosis. SOFT TISSUES: Soft tissues are unremarkable. Lung apices are clear. C-spine degenerative changes incidentally noted. Where applicable, evaluation of ICA stenosis was performed using NASCET criteria, where the site of greatest stenosis is compared to the diameter of the ICA distal to the carotid bulb. IMPRESSION: Normal CTA of the head and neck. FOR INTERNAL CODING PURPOSES Critical result: Findings discussed with ZOIE TAO at 08/18/2019 3:26 PM. RESULT CODE: (C) Electronically signed by: Pily Pereira MD (08/18/2019 3:27 PM) [facility]
[2019-08-18 15:45] VITALS: BP 109/71
== END 2019-08-18 15:55 | disposition home or self-care (01) ==
LOC: ER 13:38
DX: R20.0 Anesthesia of skin (principal); T42.6X5A Adverse effect of other antiepileptic and sedative-hypnotic drugs, initial encounter; R47.81 Slurred speech; R53.1 Weakness; F41.9 Anxiety disorder, unspecified; Y92.89 Other specified places as the place of occurrence of the external cause
CPT/HCPCS: 36415; 70450; 70496; 70498; 71045; 80053; 82962; 84484; 85025; 85610; 85730; 93005; 99285; Q9967